=== PATIENT | male | born 2000 | race Caucasian/White ===

== ENCOUNTER 2021-06-14 22:26 | Emergency (ER) | payer BC ==
[2021-06-14 23:08] LABS: HEMOGLOBIN 10.1 gm/dl (14.0-17.5); RED BLOOD COUNT 3.6 M/UL (4.20-5.50); WHITE BLOOD COUNT 5.2 K/UL (4.5-11.0)
[2021-06-14 23:28] LABS: BUN/CREATININE RATIO 23 (0-10)
== END 2021-06-15 01:09 | disposition home or self-care (01) ==
LOC: ER1 22:26
PROVIDERS: Physician Assistant
DX: K64.9 Unspecified hemorrhoids (principal)
CPT/HCPCS: 80053; 81001; 83690; 85025; 99283